=== PATIENT | female | born 1965 | race Hispanic/Latino ===

== ENCOUNTER 2017-10-02 07:45 | Day surgery (SDC) | payer MEDICAID ==
[2017-10-02] MEDS ORDERED: Lactated Ringer's 1,000 ML IV ONE ×2 (08:24→09:36)
[2017-10-02] MEDS ORDERED: Lidocaine 2% MPF (5 ml) Inj ONE (09:08)
[2017-10-02] MEDS ORDERED: Propofol 10 mg/ml Inj (20 ML) ONE (09:08)
[2017-10-02 09:51] VITALS: TEMP 97
[2017-10-02 10:02] VITALS: BP 94/66; PULSE 64; RESP 18; O2SAT 99
== END 2017-10-02 11:09 | disposition home or self-care (01) ==
LOC: H.ENDO 07:45
PROVIDERS: ATTEND Internal Medicine Gastroenterology
DX: R19.7 Diarrhea, unspecified (principal); K92.2 Gastrointestinal hemorrhage, unspecified; K64.0 First degree hemorrhoids; K62.1 Rectal polyp; K62.5 Hemorrhage of anus and rectum; K44.9 Diaphragmatic hernia without obstruction or gangrene; K20.9 Esophagitis, unspecified; K29.70 Gastritis, unspecified, without bleeding; K92.1 Melena
CPT/HCPCS: 43239; 45385; 82948; 88305; J2704; J7120